=== PATIENT | male | born 1990 | race Caucasian/White ===

== ENCOUNTER 2017-03-03 20:25 | Emergency (ER) | payer BC ==
[2017-03-03 20:35] VITALS: BP 138/90; PULSE 74; TEMP 98.9; BMI 34.7
--- NOTE | 2017-03-03 20:43 | PDOC ---
History of Present Illness - General History Source: Patient Exam Limitations: No Limitations - History of Present Illness Initial Comments: 03/03/17 21:25 The patient is a 26 year old male, with no significant past medical history, who presents today complaining of a headache and right sided neck pain that began 10 days ago s/p diving onto 1st base in a softball game and hit his forehead into the ground. Initially he thought he pulled a muscle in the right side of his neck, but the neck pain has progressively worsened and began to radiate up the right side of his head and to his right eye. He describes the pain as pounding and states that it is worse at night and intermittent during the day. He reports lightheadedness and nausea. Denies LOC. Denies visual changes. Denies numbness and tingling. Denies vomiting. Denies fever, chills. Allergies: penicillin Review of systems General: No fevers or chills, no weakness, no weight loss HEENT: +right sided neck pain that radiates to the right side of his head and right eye. No change in vision. No sore throat,. No ear pain CardioVascular: No chest pain or shortness of breath Respiratory:No cough, or wheezing. Gastrointestinal: no nausea, vomiting, diarrhea or constipation, No rectal bleeding Genitourinary: No dysuria, hematuria, or frequency Musculoskeletal: No joint or muscle pain or swelling Neurologic: No headache, vertigo, dizziness or loss of consciousness Psychiatric: nor depression Skin: No rashes or easy bruising Allergic: no skin or latex allergy All other systems reviewed and normal Physical Exam GENERAL: The patient is awake, alert, and fully oriented, in no acute distress. HEAD AND NECK: Minor tenderness on palpation of the lower cervical spine. Normal with no signs of trauma. EYES: Pupils equal, round and reactive to light, extraocular movements intact, sclera anicteric, conjunctiva clear. EXTREMITIES: Normal range of motion, no edema. NEUROLOGICAL: Normal speech, normal gait. PSYCH: Normal mood, normal affect. SKIN: Warm, Dry, normal turgor, no rashes or lesions noted. <Pinky Nino - Last Filed: 03/03/17 21:25> - General History Source: Patient Exam Limitations: No Limitations - History of Present Illness Initial Comments: 03/03/17 22:49 A portion of this note was documented by scribe services under my direction. I have reviewed the details of the note, within reason, and agree with the documentation. The case summary and management plan written by me. Assessment and plan: This is 26-year-old male who comes in with his mother for evaluation of headache and neck pain. Patient injured his head about 10 days ago when he was playing baseball slid into a base and hit his head. Patient said since then he's had a mild headache and some neck discomfort. Patient exam was nonfocal and he had a normal neurological exam. Patient did have some mild tenderness on palpation of his posterior neck and the CT was done of the head and neck to rule out any acute pathology. CT scan was negative for any acute pathology of the head or neck Patient was given Toradol in the emergency room for pain Patient was told to follow-up with a neurologist for postconcussive syndrome and neck discomfort and was discharged <Melinda Dias I - Last Filed: 03/03/17 22:51> - General Chief Complaint: Pain Stated Complaint: NECK PAIN X 10 DAYS Time Seen by Provider: 03/03/17 20:40 Past History <Pinky Nino - Last Filed: 03/03/17 21:25> - Past Medical History Suicide Attempt (Hx): No - Surgical History Appendectomy: Yes - Immunization History Immunization Up to Date: Yes - Psycho/Social/Smoking Cessation Hx Anxiety: No Suicidal Ideation: No Smoking History: Current every day smoker Number of Cigarettes Smoked Daily: 3 Information on smoking cessation initiated: Yes 'Breaking Loose' booklet given: 03/03/17 Hx Alcohol Use: Yes (SOCIAL) Drug/Substance Use Hx: No Substance Use Type: None <Melinda Dias I - Last Filed: 03/03/17 22:51> - Past Medical History Allergies/Adverse Reactions: Allergies Allergy/AdvReac Type Severity Reaction Status Date / Time Penicillins Allergy Severe Verified 03/03/17 20:26 Home Medications: Ambulatory Orders NK [No Known Home Medication] 03/03/17 *Physical Exam - Vital Signs Last Vital Signs Temp Pulse Resp BP Pulse Ox 98.9 F 74 18 138/90 99 03/03/17 20:28 03/03/17 20:28 03/03/17 20:28 03/03/17 20:28 03/03/17 20:28 <Pinky Nino - Last Filed: 03/03/17 21:25> - Vital Signs Last Vital Signs Temp Pulse Resp BP Pulse Ox 98.9 F 74 18 138/90 99 03/03/17 20:28 03/03/17 20:28 03/03/17 20:28 03/03/17 20:28 03/03/17 20:28 <Melinda Dias I - Last Filed: 03/03/17 22:51> *DC/Admit/Observation/Transfer - Attestations Scribe Attestion: 03/03/17 21:26 Documentation prepared by CHADWICK Joe, acting as medical economics consultant for Melinda Dias MD. <Pinky Nino - Last Filed: 03/03/17 21:25> - Discharge Dispostion Admit: No <Melinda Dias I - Last Filed: 03/03/17 22:51> Diagnosis at time of Disposition: Postconcussion syndrome Strain of neck muscle Qualifiers: Encounter type: initial encounter Qualified Code(s): S16.1XXA - Strain of muscle, fascia and tendon at neck level, initial encounter - Discharge Dispostion Disposition: HOME Condition at time of disposition: Good - Patient Instructions Additional Instructions: Tylenol or Motrin as needed for pain. Follow-up with a neurologist this week or early next week if possible. Return to the emergency department immediately with ANY new, persistent or worsening symptoms. Continue any medications as previously prescribed by your physician. You should follow up with your primary doctor as soon as possible for referral to a neurologist . Please make sure your doctor reviews the results of your emergency evaluation. Thank you for coming to the Emergency Department today for your care. It was a pleasure to see you today. Please note that your evaluation is INCOMPLETE until you follow-up with your doctor.
[2017-03-03] MEDS ORDERED: KETOROLAC TROMETHAMINE 60 MG/2 ML VIAL IM ONE (22:48)
[2017-03-03] MEDS ORDERED: KETOROLAC TROMETHAMINE 60 MG/2 ML VIAL ONE (23:03)
== END 2017-03-03 23:16 | disposition home or self-care (01) ==
LOC: FER 20:25
PROC: 3E0233Z Introduction of Anti-inflammatory into Muscle, Percutaneous Approach (ICD-10-PCS; principal; 2017-03-03)
DX: F07.81 Postconcussional syndrome (principal); S16.1XXA Strain of muscle, fascia and tendon at neck level, initial encounter; W22.8XXA Striking against or struck by other objects, initial encounter; Y93.64 Activity, baseball; Y92.320 Baseball field as the place of occurrence of the external cause
CPT/HCPCS: 70450-TC; 72125-TC; 99281-25

== ENCOUNTER 2021-01-12 05:10 | Day surgery (SDC) | payer BC ==
[2021-01-09 09:19] VITALS: BMI 38.4
[2021-01-12] MEDS ORDERED: LIDOCAINE HCL 1%, 10 MG/ML (20ML VIAL) ONE (11:19)
[2021-01-12] MEDS ORDERED: BUPIVACAINE HCL/PF 0.5% (5MG/ML) 10 ML VIAL ONE (11:19)
[2021-01-12] MEDS ORDERED: PROPOFOL 20 ML ONE ×2 (11:36)
[2021-01-12] MEDS ORDERED: BUPIVACAINE HCL/PF 0.5% (5 MG/ML) 30 ML VIAL IJ ONE (12:06)
[2021-01-12] MEDS ORDERED: LIDOCAINE HCL 1%, 10 MG/ML (20ML VIAL) INF ONE (12:06)
[2021-01-12] MEDS ORDERED: PROMETHAZINE HCL 25 MG/1 ML VIAL IVPB PRN (13:07)
[2021-01-12] MEDS ORDERED: ONDANSETRON 4 MG/2 ML VIAL IVPUSH PRN (13:07)
[2021-01-12] MEDS ORDERED: oxyCODONE HCL 5 MG TABLET PO PRN (13:07)
[2021-01-12 15:00] VITALS: TEMP 97.8
[2021-01-12] MEDS ORDERED: oxyCODONE HCL 10 MG SUSTAINED ACTING TABLET ONE (15:13)
[2021-01-12 17:53] VITALS: BP 130/60; PULSE 60
== END 2021-01-12 17:45 | disposition home or self-care (01) ==
LOC: JASU-SURG 05:10
PROVIDERS: ATTEND Orthopaedic Surgery
PROC: 0MQ70ZZ Repair Right Hand Bursa and Ligament, Open Approach (ICD-10-PCS; principal; 2021-01-12 11:00)
DX: S53.31XA Traumatic rupture of right ulnar collateral ligament, initial encounter (principal); X58.XXXA Exposure to other specified factors, initial encounter; Y93.9 Activity, unspecified; Y92.9 Unspecified place or not applicable; Y99.9 Unspecified external cause status
CPT/HCPCS: 94760